=== PATIENT | female | born 1980 | race Caucasian/White ===

== ENCOUNTER 2022-01-10 00:12 | Emergency (ER) | payer OTHER, SELFPAY ==
--- OUTSIDE RECORDS SUMMARY | 2022-01-10 00:19 | XMS_ITS | Encounter Summary ---
:1980 Author Organization [employer] [facility] Address [address] [place] [address] Care Team Providers Name Role Phone Joan Butler MD Primary Care Provider [phone] Reason for Visit Reason Comments Sore Throat Encounter Details Date Type Department Care Team Description 06/17/2018 Office Visit [id number] Gino Bueno NP Acute pharyngitis, unspecified etiology (Primary Dx); summer [address] [facility] Streptococcal sore [place] [address] [address] [place], [place] [phone] (Wo rk) Social History Tobacco Use Types Packs/Day Years Used Date Current Every Day Smoker 0.5 Smokeless Tobacco: Never Used Tobacco Cessation: Ready to Quit: Yes; C ounseling Given: Yes Sex Assigned at Date Recorded Not on file documented as of this encounter Last Filed Vital Signs Vital Sign Reading Time Taken Comments Blood Pressure 122/68 06/17/2018 10:32 AM EST Pulse 118 06/17/2018 10:41 AM EST Temperature 37.9 ??C (100.3 ??F) 06/17/2018 10:32 AM EST Respiratory Rate 18 06/17/2018 10:32 AM EST Oxygen Saturation 98% 06/17/2018 10:32 AM EST Inhaled Oxygen Concentration - - Weight - - Height - - Body Mass Index - - documented in this encounter Functional Status Functional Status Response Date of Assessment Is the person deaf or does he/she have serious difficulty hearing? Is this person blind or does he/she have serious difficulty seeing even when wearing glasses? Does this person have serious difficulty walking or climbing stairs? Does this person have difficulty dressing or bathing? Because of a physical, mental, or emotional condition, does this person have difficulty doing errands alone such as visiting a doctor's office or shopping? Cognitive Status Response Date of Assessment Because of a physical, mental, or emotional condition, does this person have serious difficulty concentrating, remembering, or making decisions? documented as of this encounter Patient Instructions Patient InstructionsGino Bueno NP - 06/17/2018 10:15 AM EST Seek immediate emergency medical attention if you experience severe or worsening abdominal pain, difficulty swallowing, stiff neck, shortness of breath, coughing or vomiting up blood, chest pain, increased fever, unexplained weight loss, or blood in stool. Follow up with Primary Care Provider immediately if symptoms worsen or mouth pain interferes with the ability to eat or drink. Follow up with Primary Care Provider if symptoms not improved in 3-4 days or sore throat persists after completion of antibiotic. Strep Throat Seek Immediate Medical Attention If You: ??? If your throat is so swollen you are having difficulty breathing or cannot swallow fluids ??? Get a very bad headache ??? Your neck hurts or it feels stiff Strep Throat Facts What is Strep Throat? Strep throat is an infection of the throat caused by a bacterium called streptococci. Strep throat spreads from person to person through coughing, sneezing or close contact. How is strep throat diagnosed? Strep throat cannot be diagnosed from your symptoms or exam alone. [facility] uses a rapid test to diagnose strep throat during your visit. If the rapid test is positive, you will be treated with antibiotics. If the rapid test is negative, a throat swab is sent to an outside laboratory to confirm whether or not strep bacteria are present. Prevention: Most people exposed to strep throat do not become sick unless they have had close contact with an infected person. To reduce the risk of infection: ??? Wash your hands frequently and thoroughly, especially before eating. ??? Avoid sharing cups, eating utensils and toothbrushes ??? Limit close contact with people who have symptoms of strep throat Treatment: Antibiotics are used to kill strep bacteria. This helps prevent spreading the bacteria toothers and it also helps to prevent rare, but serious complications such as rheumatic fever or kidney inflammation. ??? Be sure to finish all antibiotic medication even if you feel better. ??? Rinse your mouth with salt water mixture 3-4 times a day (1/2 teaspoon of salt in 1 cup warm water). This can help to reduce the swelling that causes your throat pain ??? Rest ??? Don???t smoke ??? Stay home from school or work until you have been taking antibiotics for 24 hours ??? Drink enough water to keep your pee (urine) clear or pale yellow and eat soothing foods to avoidthroat irritation ??? Change your toothbrush after being on antibiotics for 24 hours. Return if: ??? Your neck keeps getting bigger or red and tender ??? You get a rash, cough or earache ??? You cough up thick liquid that is green, yellow-brown or bloody ??? You have pain that does not get better with medicine ??? Your problems get worse instead of better ??? You have a continued fever ??? Your joints are red or they hurt documented in this encounter Progress Notes Gino Bueno NP - 06/17/2018 10:15 AM EST Subjective: Patient ID: Jannie Roach is a 37 y.o. female. HPI Sore Throat The problem location is generalized. Sore throat is described as sore. The level of severity severe. Onset was gradual. This problem has existed for 3 days. This problem occurs constantly. Since onset, the problem has been gradually worsening. The problem is new. Symptoms are worsened by swallowing. I neffective treatment includes NSAIDs (Cepacol & Ibuprofen ). Associated symptoms include ear pain, arthralgia, adenopathy, chills, fever (Temp 101 last night), headaches, cough (non productive), swollen glands, trouble swallowing, fatigue, voice change and heartburn/ regurgitation. Negative for abdominal pain, eye discharge, chest pain, neck stiffness, oral lesion, drooling, sinus congestion, shortness of breath, rhinorrhea, rash and postnasal drip. Risk factors include history of GERD. Negative for exposure to illness. Comments Aleve at 0700 am Last edited by Gino Bueno NP on 06/17/2018 10:28 AM. (History) ROS Positive for: HENT Negative for: Constitutional, Respiratory Last edited by Gino Bueno NP on 06/17/2018 10:28 AM. (History) Flu Offering: Flu Offer Have you had your flu shot this season (February 2018-September 2018)?: Yes, The flu shot does not protect from every strain but getting the shot is the best protection from getting and spreading the flu. If you have flu-like symptoms; fever, cough, body aches, sore throat then is here to help you feel better: reviewed Social History Tobacco Use Smoking Status Current Every Day Smoker ??? Packs/day: 0.50 Smokeless Tobacco Never Used History reviewed. No pertinent past medical history. Past Surgical History: Procedure Laterality Date ??? OVARIAN CYST REMOVAL At age 17 No family history on file. Objective: Physical Exam Constitutional: She is oriented to person, place, and time. She appears well- developed and well-nourished. She has a sickly appearance. No distress. HENT: Head: Normocephalic and atraumatic. Right Ear: Tympanic membrane, external ear and ear canal normal. Left Ear: Tympanic membrane, external ear and ear canal normal. Nose: Rhinorrhea present. Right sinus exhibits no maxillary sinus tenderness and no frontal sinus tenderness. Left sinus exhibits no maxillary sinus tenderness and no frontal sinus tenderness. Mouth/Throat: Uvula is midline and mucous membranes are normal. Posterior oropharyngeal edema and posterior oropharyngeal erythema present. No oropharyngeal exudate or tonsillar abscesses. Purulent drainage to pharynx Tonsils +3 Cardiovascular: Regular rhythm, S1 normal, S2 normal and normal heart sounds. Tachycardia present. Pulmonary/Chest: Effort normal and breath sounds normal. No respiratory distress. Abdominal: Soft. Normal appearance and bowel sounds are normal. There is no tenderness. Lymphadenopathy: Head (right side): Tonsillar adenopathy present. Head (left side): Tonsillar adenopathy present. She has cervical adenopathy. Neurological: She is alert and oriented to person, place, and time. Skin: Skin is warm and dry. Assessment/Plan: 1. Acute pharyngitis, unspecified etiology - Rapid strep A - Positive 2. Streptococcal sore throat - ibuprofen (ADVIL,MOTRIN) 200 MG tablet; Take 1 tablet (200 mg total) by mouth every 6 (six) hours as needed for moderate pain or fever for up to 7 days. Dispense: 30 tablet; Refill: 0 - lidocaine HCl (lidocaine) 2 % soln; Take 10-15 mL by mouth every 4 (four) hours as needed (for sore throat) for up to 1 day. Gargle and spit solution. Max 8 doses/day. Dispense: 100 mL; Refill: 0 - penicillin v potassium (VEETID) 500 MG tablet; Take 1 tablet (500 mg total) by mouth 2 (two) timesa day for 10 days. Dispense: 20 tablet; Refill: 0 Increase fluid intake, alternate between warm/cold fluids. Throat lozenges & salt water gargles could help with throat pain. Rest., If fever greater than 100.4F, difficulty swallowing/drooling, breathing follow up with PCP or urgent care. Clinical presentation confirmed with positive strep test. Antibiotics prescribed in accordance with [facility] guidelines. documented in this encounter Plan of Treatment Not on filedocumented as of this encounter Procedures Procedure Name Priority Date/Time Associated Diagnosis Comme nts STREP RAPID ANTIGEN Routine 06/17/2018 10:48 AM Acute pharyngi tis, Results for this DETECTION POCT EST unspecified etiology proce dure are in the results section. documented in this encounter Results (ABNORMAL) Rapid strep A (06/17/2018 10:48 AM EST) [facility] Method Time Signature Rapid Strep A Positive (A) Negative Screen INTERNAL Yes--Test CONTROLS working VALID appropriately Expiration 11/02/2019 Date Lot Number [id number] Specimen (Source) Anatomical Collection Method Collection Time Re ceived Time Location / / Volume Laterality Throat 06/17/2018 10:48 AM EST Gnio Bueno NP POINT OF CARE TEST ORDERABLE S documented in this encounter Visit Diagnoses Diagnosis Acute pharyngitis, unspecified etiology - Primary Streptococcal sore throat documented in this encounter Care Teams Disability Specialist Relationship Specialty Start Date End Date Joan Butler MD PCP - General Family Medicine 05/17/18 05/31/21 documented as of this encounter
--- OUTSIDE RECORDS SUMMARY | 2022-01-10 00:19 | XMS_ITS | Encounter Summary ---
:1980 Author Organization [facility] Address [address] [place] [address] Care Team Providers Name Role Phone Joan Butler MD Primary Care Provider [phone] Reason for Visit Reason Comments Flu Vaccine Encounter Details Date Type Department Care Team Description 05/17/2018 [facility] Visit [id number] Lashawn Perez, Need for vaccination summer [employer] (Primary Dx) [place], [place] [address] [address] [facility] [phone] [place], [place] [id number] Social History Tobacco Use Types Packs/Day Years Used Date Never Assessed Sex Assigned at Date Recorded Not on file documented as of this encounter Functional Status Functional Status Response [...] as of this encounter Patient Instructions Patient InstructionsLashawn Perez NP - 05/17/2018 5:35 PM EST Seek immediate emergency medical attention if you experience severe or worsening abdominal pain, difficulty swallowing, stiff neck, shortness of breath, coughing or vomiting up blood, chest pain, increased fever, unexplained weight loss, or blood in stool. For your safety, please remain in the clinic area for 15 minutes after receiving your vaccination. Notify the provider immediately if you experience difficulty breathing, weakness, hoarseness or wheezing, fast heartbeat, hives, dizziness, paleness, or swelling of the throat. After Your Injection What happens after I receive my injection? After your injection, you may experience side effects. These vary among individuals and are related to the specific medication. Most of the time, side effects are minor and go away quickly, but some may be severe. What severe side effects should I watch for? The most severe side effect associated with medications is developing a life- threatening allergic reaction known as anaphylaxis. You must seek immediate medical attention if any of the following symptoms occur: ? Trouble breathing ? Facial swelling ? Rapid drop in blood pressure (lightheaded, clammy) ? Throat swelling ? Dizziness/loss of consciousness ? Uncontrolled bleeding What are common minor side effects I might experience? One of the most common side effects is called an injection site reaction. It is not unusual to develop redness, pain, or swelling where the shot was given. The following is a list of other common side effects you might experience, depending on the medication you are receiving: ? Flu-like symptoms (body aches, fatigue) ? Bruising at the injection site ? Low-grade fever (up to 100.4o Fahrenheit) ? Headache ? Muscle pain ? Itching ? Rash ? Lipoatrophy (loss of fat tissue) What can I do to help relieve the common side effects? There are several self-care remedies you may try to help relieve the side effects. Remember most aretemporary and go away quickly. 1. If your medication is stored in the refrigerator, allow it to sit at room temperature for 15-30 minutes before injecting. Doing so before your injection will lessen site irritation. 2. Apply a cool, moist towel for 20 minutes over the spot where the shot was given and repeat every 2 to 4 hours as needed. This will help decrease swelling and pain at the injection site. 3. Only with your provider???s okay, try acetaminophen (e.g. Tylenol) or ibuprofen (e.g. Motrin or Advil) as needed for pain or fever. Read package directions for proper dosing recommendations. 4. Make sure to rotate the injection site every time you take your medication. This will help avoid development of lipoatrophy or permanent lumps under your skin. Some people may find it helpful to write down each injection site used to confirm they are rotating properly. 5. Wear lightweight clothing. Avoid garments that constrict the injection site area. *NOTE: There is a possibility of other rare, but serious, side effects from the specific medication you are receiving. Please review the patient package insert included with your medicine for further information.* When should I seek medical care? You should call your prescribing provider if you note the following: ? Pain or redness lasts more than 3 days ? Pus drains from the injection site ? High fever or chills ? Weakness or tingling in arms or legs. ? Redness or red streaks around the injection site grow bigger than 1 inch Who should I contact if I have further questions? If you have any questions, please contact your prescribing provider or [facility] Nursing Support Line at [phone], ext [phone]. [email or web address] I [phone] ([phone]) documented in this encounter Progress Notes Lashawn Perez NP - 05/17/2018 5:35 PM EST Subjective: Patient ID: Jannie Roach is a 37 y.o. female here for a Flu Vaccine visit. Have you ever fainted, nearly fainted or been concerned about fainting after receiving an injection/vaccine?: No Are you sick today with a moderate to severe illness?: No Have you ever had a serious reaction to any vaccine in the past?: No Has the VIS been reviewed?: Yes Lifestyle: Jannie has no tobacco history on file. Objective: Assessment/Plan: Vaccine administered in accordance with [facility] guidelines. Patient advised to contact [facility] if adverse event occurs. documented in this encounter Plan of Treatment Not on filedocumented as of this encounter Procedures Procedure Name Priority Date/Time Associated Diagnosis Comme nts FLUCELVAX QUADRIVALENT Routine 05/17/2018 5:54 PM Need for vac cination PFS IM; WITHOUT EST PRESERVATIVE documented in this encounter Visit Diagnoses Diagnosis Need for vaccination - Primary Need for prophylactic vaccination and in oculation against unspecified single disease documented in this encounter Care Teams Guide Domestic Tour Relationship Specialty Start Date End Date Joan Butler MD PCP - General Family Medicine 05/17/18 05/31/21 documented as of this encounter
--- OUTSIDE RECORDS SUMMARY | 2022-01-10 00:19 | XMS_ITS | Encounter Summary ---
:1980 Author Organization [facility] Address [address] [place] [address] Care Team Providers Name Role Phone Joan Butler MD Primary Care Provider [phone] Reason for Visit Reason Comments Sore Throat Encounter Details Date Type Department Care Team Description 07/06/2018 Office Visit [id number] RichardsonLadi NP Acute streptococcal tonsillitis, not spe cified as recurrent or not; [address] Acute suppurative otitis media of both e ars without spontaneous rupture of tympanic membranes, [place] [id number] [phone] Social History Tobacco Use Types Packs/Day Years Used Date Current Every Day Smoker 0.5 Smokeless Tobacco: Never Used Sex Assigned at Date Recorded Not on file documented as of this encounter Last Filed Vital Signs Vital Sign Reading Time Taken Comments Blood Pressure 108/74 07/06/2018 11:08 AM EST Pulse 83 07/06/2018 11:08 AM EST Temperature 37.3 ??C (99.1 ??F) 07/06/2018 11:08 AM EST Respiratory Rate 14 07/06/2018 11:08 AM EST Oxygen Saturation 99% 07/06/2018 11:08 AM EST Inhaled Oxygen Concentration - - [...] as of this encounter Patient Instructions Patient InstructionsLadi Villasenor NP - 07/06/2018 12:25 PM EST Seek immediate emergency medical attention [...] diagnosed from your symptoms or exam alone. [facility] uses a rapid test to diagnose strep [...] Your joints are red or they hurt Seek immediate emergency medical attention: Seek immediate emergency medical attention for severe orworsening abdominal pain, difficulty swallowing, stiff neck, shortness of breath, coughing or vomiting up blood, chest pain, increased fever, unexplained weight loss, or blood in stool. If you are taking over-the counter medication(s): If you are taking over-the counter medication(s) follow the dosing instructions included in the packaging, unless otherwise instructed by your provider It is important to notify your primary care provider of all medications you are taking, including [id number] medications. /[id number] Otitis Media Otitis Media What is Otitis Media (OM)? Otitis media is a viral or bacterial inflammation of the middle ear located behind your ear drum. Itis common in children between the ages of 6 months and 3 years, but can occur at any age. It is mostoften seen during the winter months. What causes OM? Otitis media is often diagnosed after you or your child has had a cold or allergies. Other risk factors include: ? Exposure to cigarette smoke ? Daycare attendance ? Recent antibiotic use ? Facial abnormalities, such as a cleft palate ? Problems with the Eustachian tube (a small passageway that connects the middle ear to the top of the throat) What are the signs/symptoms of otitis media? ? Rapid onset of ear pain ? pulling on ears for younger children ? Fever ? Nose congestion ? Headache ? Lethargy (listlessness) ? Irritability (increased fussiness) ? Difficulty sleeping ? Cough ? Decreased appetite (poor feeding) ? Vomiting and/or diarrhea ? Full sensation in the ear or ear ???popping?? ? Dizziness ? Hearing loss How is otitis media treated? Treatment depends on several factors - age, symptoms, and physical exam. If an antibiotic is prescribed, make sure to take all the pills even if feeling better. In some cases, you may be given a prescription to fill at a later date if symptoms do not improve. This is called a Wait and See prescription. Fill the prescription if your symptoms don???t improve in a day or two. What are the warning signs I should watch for? If any of the following symptoms develop, seek immediate medical attention at an emergency room: ? Temperature over 103.9??F ? Severe ear pain without relief ? Inability to fully open the jaw ? Stiff neck ? Unable to drink or hold fluids down What if I don???t feel better? If you have filled your prescription, and you or your child still does not feel better, you should follow-up with your primary care provider in 48-72 hours. If you were given a Wait and See Prescription, fill the prescription and take as indicated. Other remedies that may help reduce the symptoms include: 1. Apply warm compresses to your ear. Heat will help decrease the pain. 2. Elevate the head of the bed. This helps reduce ear pressure from building up. Raise the head of the crib for infants or use pillows for older children and adults. 3. Consider using nasal saline spray. For both adults and children, squirt two to four sprays into each nostril 3-4 times a day. This helps thin nasal secretions and reduces ear pressure. 4. Distraction often provides relief. Try playing a game or watching a move to redirect your attention. 5. Hold or rock children that are having ear pain. This helps to soothe and comfort the child. 6. Try nddv-xbs-yugotis pain relievers. Acetaminophen (Tylenol??) or ibuprofen (Motrin?? or Advil??)are safe medicines to use. Follow the directions printed on the box. How can I decrease the risk of developing recurrent otitis media? There are several ways to diminish the risk factors for otitis media including the following: ? Feed a child upright if bottle fed ? Avoid pacifier use after 10 months of age ? Limit exposure to large groups of children when possible ? Practice careful hand washing technique ? Avoid exposure to cigarette smoke. If you smoke, quit. ? Keep immunizations up-to-date, including influenza (Flu) and pneumococcal (Prevnar/Pneumovax) Sources: National Institutes of Health, www.nih.gov, [employer] Academy [employer] Pediatric[employer], www.aap.org www.[facility].com I.866.389.PJ (2727) Rev. 4/ documented in this encounter Progress Notes Ladi Villasenor NP - 07/06/2018 12:25 PM EST Subjective: Patient ID: Jannie Roach is a 37 y.o. female. HPI Sore Throat The problem location is generalized. Sore throat is described as sore. The level of severity moderate. Onset was sudden. This problem has existed for 8 hours. This problem occurs constantly. Since onset, the problem has been unchanged. The problem is new. Symptoms are worsened by swallowing. Associated symptoms include voice change, fatigue, cough and swollen glands. Negative for abdominal pain, earpain, postnasal drip, adenopathy, eye discharge, rash, arthralgia, rhinorrhea, chest pain, fever, shortness of breath, headaches, sinus congestion, neck stiffness, drooling and chills. Comments Diagnosed w strep 06/17/18 and treated at . Sore throat resolved. Woke up 3 am today w sore throat. Last edited by Ladi Villasenor NP on 07/06/2018 11:07 AM. (History) ROS Positive for: HENT Last edited by Ladi Villasenor NP on 07/06/2018 11:07 AM. (History) Flu Offering: Flu Offer Have you had your flu shot this season (February 2018-September 2018)?: Yes Social History Tobacco Use Smoking Status Current Every Day Smoker ??? Packs/day: 0.50 Smokeless Tobacco Never Used History reviewed. No pertinent past medical history. Past Surgical History: Procedure Laterality Date ??? OVARIAN CYST REMOVAL At age 17 History reviewed. No pertinent family history. Objective: Physical Exam Constitutional: She is oriented to person, place, and time. She appears well- developed and well-nourished. HENT: Right Ear: Hearing, external ear and ear canal normal. Tympanic membrane is injected, erythematous and bulging. Left Ear: Hearing, external ear and ear canal normal. Tympanic membrane is injected, erythematous and bulging. Nose: Nose normal. Right sinus exhibits no maxillary sinus tenderness and no frontal sinus tenderness. Left sinus exhibits no maxillary sinus tenderness and no frontal sinus tenderness. Mouth/Throat: Uvula is midline and mucous membranes are normal. Oropharyngeal exudate, posterior oropharyngeal edema and posterior oropharyngeal erythema present. Neck: Normal range of motion. Neck supple. Cardiovascular: Normal rate, regular rhythm and normal heart sounds. Pulmonary/Chest: Effort normal and breath sounds normal. Musculoskeletal: Normal range of motion. Lymphadenopathy: She has cervical adenopathy. Neurological: She is alert and oriented to person, place, and time. Skin: Skin is warm and dry. Psychiatric: She has a normal mood and affect. Her behavior is normal. Vitals reviewed. Assessment/Plan: Clinical presentation significant for bacterial strep throat and ear infection. Antibiotics prescribed in accordance with [facility] guidelines. You are contagious until you have been on the antibiotic for 24 hours. At that time you should replace your toothbrush, towels, pillow cases and anything else your mouth and respiratory tract may havecome into contact with. Finish all the antibiotics even if you are completely better after a few days. Soft foods, cool liquids, and avoid acidic or spicy food/drinks Honey is very soothing for the throat Take Ibuprofen (if you are able to) every 6 hours after food and alternate with tylenol every 6 hours so you are getting pain relief/fever sales incentive analyst every 3 hours if needed. Follow up with your PCP if no improvement or worse in 24 to 48 hours. Patient/parent verbalizes understanding of the plan and has no further questions at this time. documented in this encounter Plan of Treatment Not on filedocumented as of this encounter Procedures Procedure Name Priority Date/Time Associated Diagnosis Comme nts STREP RAPID Routine 07/06/2018 11:15 Acute streptococcal Resu lts for this ANTIGEN DETECTION AM EST tonsillitis, not proced ure are in POCT specified as recurrent the r esults or not section. documented in this encounter Results (ABNORMAL) Rapid strep A (07/06/2018 11:15 AM EST) [facility] Method Time Signature Rapid Strep A Positive (A) Negative Screen INTERNAL Yes--Test CONTROLS working VALID appropriately Expiration 10/22 Date Lot Number [id number] Specimen (Source) Anatomical Collection Method Collection Time Re ceived Time Location / / Volume Laterality Throat 07/06/2018 11:15 AM EST Ladi Richardson COMMUNITY MARKETING COORDINATOR POINT OF CARE TEST ORDERABLE S documented in this encounter Visit Diagnoses Diagnosis Acute streptococcal tonsillitis, not spe cified as recurrent or not Acute suppurative otitis media of both e ars without spontaneous rupture of tympanic membranes, recurrence not specified documented in this encounter Care Teams Chief Engineer'S Helper Relationship Specialty Start Date End Date Joan Butler MD PCP - General Family Medicine 05/17/18 05/31/21 documented as of this encounter
--- OUTSIDE RECORDS SUMMARY | 2022-01-10 00:19 | XMS_ITS | Clinical Summary ---
:1980 Author Organization [facility] Address [address] [place] [address] Care Team Providers Name Role Phone No, Pcp TRUMPET PLAYER Primary Care Provider Unavailable Allergies No known active allergies Medications Medication Sig Dispensed Refills Start Date End Date Status multivit with Take 1 tablet by 0 Active min-folic acid 0.4 mouth. mg tab cetirizine (ZyrTEC) Take 10 mg by mouth. 0 Active 10 MG tablet clobetasoL APPLY TO RASH ON 0 09/22/2019 A ctive (TEMOVATE) 0.05 % ARM, LEGS 2X DAILY X ointment 2 WKS, THEN TAKE 1 WK BREAK. REPEAT NEEDED. ferrous sulfate 325 Take 325 mg by 0 Active (65 FE) MG tablet mouth. fluticasone 1 spray into each 0 Active propionate (FLONASE) nostril. 50 mcg/actuation nasal spray metFORMIN (GLUMETZA) Take 1,000 mg by 0 Active 1000 MG (MOD) 24 hr mouth. tablet capsaicin-menthol Use topically as 1.5 oz 0 11/05/2019 Active 0.025-10 % gel directed for pain for 3 to 7 days as needed. Do not apply to open wounds, infections or exfoliative dermatitis. Immunizations Name Administration Dates Next Due Flucelvax Quadrivalent Prefilled Syringe 05/17/2018 Social History Tobacco Use Types Packs/Day Years Used Date Current Every Day Smoker 0.5 Smokeless Tobacco: Never Used Tobacco Cessation: Ready to Quit: No; Co unseling Given: Yes Sex Assigned at Date Recorded Not on file Last Filed Vital Signs Vital Sign Reading Time Taken Comments Blood Pressure 120/60 11/05/2019 2:52 PM EDT Pulse 97 11/05/2019 2:52 PM EDT Temperature 37.5 ??C (99.5 ??F) 11/05/2019 2:52 PM EDT Respiratory Rate 18 11/05/2019 2:52 PM EDT Oxygen Saturation 98% 11/05/2019 2:52 PM EDT Inhaled Oxygen Concentration - - Weight 109 kg (240 lb) 11/05/2019 2:52 PM EDT Height 157.5 cm (5' 2) 11/05/2019 2:52 PM EDT Body Mass Index 43.9 11/05/2019 2:52 PM EDT Plan of Treatment Health Maintenance Due Date Last Done Comments MAMMOGRAM 1980 Cervical Cancer: Screening 2000 Colonoscopy 2019 [facility] COVID-19 Vaccine (3 - Booster for 03/09/2021 09/06/2020 , 08/09/2020 Moderna series) Medical Devices Not on file Care Teams Jointer Operator Relationship Specialty Start Date End Date No, Pcp, TRUMPET PLAYER PCP - General Family Medicine 06/01/21 N/A Do not use
--- OUTSIDE RECORDS SUMMARY | 2022-01-10 00:19 | XMS_ITS | Encounter Summary ---
:1980 Author Organization [facility] Address [address] [place] [address] Care Team Providers Name Role Phone No, Pcp HEALTH PRACTICE MANAGER Primary Care Provider Unavailable Reason for Visit Reason Comments Covid-19 Send Out Testing Encounter Details Date Type Department Care Team Description 06/02/2021 Office Visit [facility] Sydney Shannon Con tact with and [place] Corie HEALTH PRACTICE MANAGER (suspected) exposure - 19 Testing Site [address] [facility] to covid-19 (Primary 2 [place], [place] Dx) [place] [id number] Social History Tobacco Use Types Packs/Day Years [...] as of this encounter Patient Instructions Patient InstructionsLinda Aquino - 06/02/2021 3:40 PM EST Seek immediate emergency medical attention if you experience sudden vision loss or eye pain, severe or worsening abdominal pain, difficulty swallowing, stiff neck, shortness of breath, coughing or vomiting up blood, chest pain, increased fever, unexplained weight loss, or blood in stool. Follow up with Primary Care Physician as scheduled. documented in this encounter Progress Notes Lauren Aquino - 06/02/2021 3:40 PM EST Self Swab Type: Anterior Nasal documented in this encounter Plan of Treatment Not on filedocumented as of this encounter Procedures Procedure Name Priority Date/Time Associated Diagnosis Comme nts SARS-COV-2 RNA, QL Routine 06/02/2021 4:29 PM Contact with and Results for this NAAT, RT PCR/TMA EST (suspected) exposure pro cedure are in (COVID-19) to covid-19 the results section. documented in this encounter Results SARS-COV-2 RNA, QL NAAT, RT PCR/TMA (COVID-19) (06/02/2021 4:29 PM EST) athologist Signature [facility] Negative Negative [facility] SARS-COV-2 RNA, QL NAAT, RT PCR/TMA (COVID-19) Comment: Negative: SARS-CoV-2 not detected Testing did not identify the presence of SARS-CoV-2 (the virus that causes COVID-19) in the patient's sample. Many factors can impact the sensitivity of this test, including variability in sample collection technique, stage of infection, or the presence of interfering substances. Collection of multiple samples may be necessary to detect the SARS-CoV- 2 virus. If clinically indicated, consider collectin g a new sample for COVID-19 testing or testing for other respiratory viruses. This test was developed for the detectio n of nucleic acids from the SARS-CoV-2 virus by RT-PCR in individuals who meet SARS-CoV-2 clinical and/or epidemiological criteria. This test has not been FDA cleared or ap proved. This test has been authorized by FDA und er an EUA for use by the authorized laboratory. This test is only authorized for the duration of time that the Mortgage Loan Assistant of the [facility] declares circumstances exist j ustifying the authorization of the emerg ency use of in vitro diagnostic tests for detection of SARS-CoV-2 virus and/or diagnosis of COVID-19 infection under section 564(b)(1) of the Act, 21 U.S.C. 360bbb-3(b)(1), unless the authorization is terminated or revoked sooner. To learn more about this test, go to [email or web address] Performed by: SHAMEKA Villagran [id number], CLIA [id number], [address] [facility] [address] [place] [address] Earth Moving Technician: Jose Ramon Gonzalez, Ph D, FACMG, FFSC ([facility]) Performed by: TAQUERIA Villagran [id number], [address] [address], Alexander Acuna MD Specimen (Source) Anatomical Collection Method Collection Time Re ceived Time Location / / Volume Laterality 06/02/2021 4:29 PM EST Sydney Shannon NP MICROBIOLOGY - GENERAL ORDER VITOR Performing Organization Address City/State/ZIP Code Phon e Number [place] [address] [place] [address] [address] documented in this encounter Visit Diagnoses Diagnosis Contact with and (suspected) exposure to covid-19 - Primary documented in this encounter Care Teams Hand Straightener Relationship Specialty Start Date End Date No, Pcp, HEALTH PRACTICE MANAGER PCP - General Family Medicine 06/01/21 N/A Do not use documented as of this encounter
[2022-01-10 00:23] VITALS: BP 120/81; PULSE 94; RESP 14; TEMP 36.6; O2SAT 98
--- NOTE | 2022-01-10 01:15 | ED.GENADUL_ITS ---
Discharge Plan Disposition Patient Disposition: HOME Condition: Stable Discharge Details Clinical Impression: Fish hook in foot Primary Care Provider: Jeanine,Local ED Provider: Alexander Fabian Home Meds and New Rx's Prescriptions: New amoxicillin-pot clavulanate 875-125 mg tablet 1 tab PO BID Qty: 10 0RF No Action metformin 500 mg tablet extended release 24 hr 2 tab PO DAILY Label Comments: TAKE 2 TABLETS BY MOUTH DAILY WITH BREAKFAST. lorazepam 0.5 mg tablet 0.5 tab DAILY PRN PRN Label Comments: TAKE 1 TABLET BY MOUTH ONCE DAILY NEEDED . DO NOT TAKE WITH TRAZODONE. NO ALCOHOL AND DRIVING clobetasol 0.05 % ointment 1 applic TOPICAL DAILY Label Comments: PLEASE SEE ATTACHED FOR DETAILED DIRECTIONS albuterol sulfate 90 mcg/actuation HFA aerosol inhaler 1 inh INHALATION Q4H PRN PRN Label Comments: INHALE 2 PUFFS INSTRUCTED EVERY 4-6 HOURS NEEDED RINSE MOUTHPIECE AT LEAST WEEKLY. sertraline 50 mg tablet 1.5 tab PO DAILY Label Comments: TAKE 1&1/2 TABLETS BY MOUTH ONCE DAILY (DO NOT STOP WITHOUT CONSULTING CLINICIAN) trazodone 50 mg tablet 1 tab PO DAILY PRN PRN Label Comments: TAKE 1 TABLET BY MOUTH EVERY DAY AT BEDTIME NEEDED FOR SLEEP Discharge Instructions Additional Instructions: If you develop spreading redness or yellow white discharge from the wound return to the emergency department Try to keep the wound clean by soaking twice a day in water with mild soap for a few minutes Medical Decision Making 41 yo female comes in after she stepped on an unused fish hook that was on the ground at her house. She denies other injuries or falls. She has a small what appears to be about 3-4 cm fishhook on the plantar surface of her left toe, int act sensation and pulses. She verbally consented to have lidocaine and attempted removal. Performed digital block with 2cc of lidocaine on each side of the toe. I attempted to use needle guiadance against the constance but was unsuccessful so I used an 11 blade and made a small incision and was able to pull the hook out. This was done under sterile technique. Will prescribe short course of prophylactic antibiotics, return precautions given HPI General Mode of arrival: ambulatory . Date/Time Provider Initiated Documentation: 01/10/22 00:30 . Limitations to Documentation: no limitations . Information obtained by: patient . History of Present Illness 41 year old F presents to the emergency department with the chief complaint of fishook in foot, described as moderate, Patient started experiencing this hour(s) (1) and it has been constant. No relieving factors improve symptom(s), No exacerbating factors reported . Patient notes no other symptoms.. Patient did receive the following treatments prior to arrival, none Related Data Home Medications Medication Instructions Recorded Confirmed albuterol sulfate 90 mcg/actuation 1 inh inhalation Q4H PRN PRN 01/10/22 01/10/22 aerosol inhaler amoxicillin 875 mg-potassium 1 tab PO BID #10 tabs 01/10/22 clavulanate 125 mg tablet clobetasol 0.05 % topical ointment 1 applic topical DAILY 01/10/22 01/10/22 lorazepam 0.5 mg tablet 0.5 tab DAILY PRN PRN 01/10/22 01/10/22 metformin 500 mg tablet,extended 2 tab PO DAILY 01/10/22 01/10/22 release 24 hr sertraline 50 mg tablet 1.5 tab PO DAILY 01/10/22 01/10/22 trazodone 50 mg tablet 1 tab PO DAILY PRN PRN 01/10/22 01/10/22 Previous Rx's Medication Instructions Recorded amoxicillin 875 mg-potassium 1 tab PO BID #10 tabs 01/10/22 clavulanate 125 mg tablet Allergies Allergy/AdvReac Type Severity Reaction Status Date / Time No Known Allergies Allergy Unverified 01/10/22 00:42 General Stated Complaint: GenMedical ASHLEY: 4 Review of Systems All systems reviewed & are unremarkable except as noted in HPI and below Constitutional Constitutional: Denies chills and Denies fever(s) Cardiovascular Cardiovascular: Denies chest pain and Denies dyspnea Respiratory Respiratory: Denies dyspnea Gastrointestinal Gastrointestinal: Denies abdominal pain and Denies vomiting Integumentary/Breasts Skin/Breast: Denies rash PFSH All Active Problems (Updated 01/10/22 @ 01:20 by Alexander Fabian MD) Fish hook in foot (Acute) Medical History (Updated 01/10/22 @ 01:20 by Alexander Fabian MD) Obesity PCO (polycystic ovaries) Social History Smoking/Tobacco Use Status: Current every day Tobacco Type: e-cigarettes Smoking risk assessment performed?: Yes Drug use: Never Substance use type: does not use Do you feel safe at home: Yes Do you feel safe in your relationship?: Yes Exam Const General: no acute distress Orientation: alert HENMT Head: normal to inspection Ears: external ears normal General nose exam: external nose normal Mouth: moist mucous membranes Eyes General: appearance normal, both eyes and all related structures Neck Neck: normal visual inspection Resp Effort & Inspection: normal respiratory effort and able to speak in complete sentences Cardio Rate: regular rate Skin General skin exam: no rashes or lesions noted Neuro General: patient alert and patient oriented x3 Extrem General: capillary refill normal Psych Mental Status: mental status grossly normal Course Vital Signs Vital signs: Vital Signs Temperature 36.6 C 01/10/22 00:23 Pulse 94 H 01/10/22 00:23 Respiratory Rate 14 01/10/22 00:23 Blood Pressure 120/81 01/10/22 00:23 Pulse Oximetry 98 01/10/22 00:23 Temperature 36.6 C 01/10/22 00:23 Temperature Source Skin 01/10/22 00:23 Pulse 94 H 01/10/22 00:23 Respiratory Rate 14 01/10/22 00:23 Respiratory Effort Non-Labored 01/10/22 00:28 Blood Pressure 120/81 01/10/22 00:23 Blood Pressure Position Sitting 01/10/22 00:23 Pulse Oximetry 98 01/10/22 00:23 Oxygen Delivery Method Room Air 01/10/22 00:23 Oxygen Flow Rate 0 01/10/22 00:23 Pain Level 0 01/10/22 00:23
[2022-01-10] MEDS: Amoxicillin 875/Clav. 125 TAB PO (01:26)
[2022-01-10] MEDS: Lidocaine 1% Multi-Dose 20 ML VIAL (01:27)
[2022-01-10 01:31] VITALS: BP 113/78; PULSE 66; RESP 15; TEMP 36.6; O2SAT 99
== END 2022-01-10 01:35 | disposition home or self-care (01) ==
PROVIDERS: Emergency Provider Emergency Medicine
DX: S91.145A Puncture wound with foreign body of left lesser toe(s) without damage to nail, initial encounter (principal); W26.8XXA Contact with other sharp object(s), not elsewhere classified, initial encounter
CPT/HCPCS: 28190; J3490